=== PATIENT | male | born 1940 | race Caucasian/White ===

== ENCOUNTER → 2017-03-06 | Outpatient (CLI) | payer MEDICARE, BC ==
--- NOTE | 2017-03-07 08:42 | XR ---
EXAMINATION TYPE: PA chest and left rib series DATE OF EXAM: 03/06/2017 10:19 AM COMPARISON: Chest 07/09/2015 HISTORY: 76-year-old male left rib pain, trauma FINDINGS: Frontal view of the chest shows heart at the upper limits of normal in size. There is some patchy opa city at the left base without significant pleural effusion. No pneumothorax. Right lung and pleural s pace are clear. Mild elongation of the thoracic aorta. No displaced left rib fracture seen. IMPRESSION: 1. Patchy atelectasis, contusion, or infiltrate at the left base. 2. No displaced left rib fracture.
== END | disposition home or self-care (01) ==
LOC: RADXRYALE 10:03
PROVIDERS: ATTEND Family Medicine
DX: S29.9XXA Unspecified injury of thorax, initial encounter (principal); R91.8 Other nonspecific abnormal finding of lung field; X58.XXXA Exposure to other specified factors, initial encounter

== ENCOUNTER → 2018-05-15 | Outpatient (CLI) | payer BC, MEDICARE ==
--- NOTE | 2018-05-15 15:53 | US ---
EXAMINATION TYPE: US retroperitoneal limited DATE OF EXAM: 05/15/2018 COMPARISON: NONE CLINICAL HISTORY: R94.4 abnormal renal studies. Retroperitoneal order for renal and aorta, states abn renal function test, patient states no symptoms Right Kidney: 10.4 x 5.0 x 5.0cm Left Kidney: 10.7 x 4.4 x 5.9cm Right Kidney: 1.0cm mid pole shadowing stone seen Left Kidney: limited views due to bowel gas and rib shadowing Aorta Prx: 2.5 x 2.9cm Aorta Mid: 3.9 x 8.7cm Aorta Dist: 9.8 x 8.6cm Aorta Bifurcation: Rt = 2.3cm Lt = 4.5cm dilation of aorta seen from proximal and extending down through iliac arteries, dependant debris se en posterior wall mid/dist level Bladder is somewhat poorly distended and thus suboptimally evaluated. IMPRESSION: Large abdominal aortic aneurysm measuring up to 9.8 cm in size with extension into left common iliac artery. Aneurysm of this size is high risk for rupture. Fairly urgent Endovascular and/o r surgical referral is advised. A [place] critical message alert has been initiated for Oksana Taylor DO via the [employer] Critical Results System on 05/15/2018 3:48 PM. This message alert has been sent to Oksana Taylor DO via the preferences provided by the clinician for the receipt of Radiology Critical Findings. Message ID [id number]. Case discussed with covering nurse practitioner in office also at time of dictation.
== END | disposition home or self-care (01) ==
LOC: RADUSWWP 14:16
PROVIDERS: ATTEND Family Medicine
DX: I71.4 Abdominal aortic aneurysm, without rupture (principal); I72.3 Aneurysm of iliac artery
CPT/HCPCS: 76775

== ENCOUNTER → 2018-05-15 | Outpatient (CLI) | payer MEDICARE ==
--- NOTE | 2018-05-15 20:01 | CT ---
EXAMINATION TYPE: CT angio abd aorta w/Runoff DATE OF EXAM: 05/15/2018 COMPARISON: None HISTORY: AAA CT DLP: 1874.7 mGycm, Automated Exposure Control for Dose Reduction was Utilized. CONTRAST: CT scan of the abdomen and pelvis is performed with oral and with IV Contrast, patient injected with 80 mL of Isovue 370. FINDINGS: Multiple axial sections were obtained from the diaphragm to the bottom of the feet with intravenous c ontrast. There are 3-D post processed images. There is a fusiform mid and lower abdominal aortic aneurysm that measures 17 cm in length this extend s from the renal arteries to the aortic bifurcation. Aneurysm measures up to 9 cm in diameter. I see no contrast extravasation. There is arterial flow in both renal arteries and the superior mesenteric artery and the celiac artery. I see no evidence of aneurysm of these vessels. Liver spleen pancreas gallbladder appear normal. Bile ducts are not dilated. There is 7 mm calculus i n the lateral right and left kidney. There are other smaller calculi. There is no hydronephrosis. The re is no retroperitoneal adenopathy. There is no ascites. There is aneurysm of the common iliac arteries that measure 2.7 cm. There is bilateral arterial flow in the internal and external iliac arteries. There is arterial flow in both femoral arteries. There i s atherosclerotic calcification in the femoral arteries. There is arterial flow in both popliteal art eries. Evaluation of the tibial arteries is limited due to insufficient contrast. The bladder distend s smoothly. I see no pelvic mass. IMPRESSION: There is some atherosclerotic vascular disease. Angiographic evaluation of the tibial arteries is eladio y limited due to insufficient contrast. The the contrast is pooling in the very large abdominal aorti c aneurysm. There are large aneurysms of the abdominal aorta and the iliac arteries as above. There is 1 cm throm bus on the posterior wall of the abdominal aortic aneurysm. No evidence of dissection. The lower thor acic aorta and upper abdominal aorta have fairly normal diameter. If there is indication to evaluate the tibial arteries then delayed CT images will be needed or ultrasound would be helpful as a screeni ng exam for stenosis. Nonobstructing renal calculi.
== END | disposition home or self-care (01) ==
LOC: RADCTMAIN 17:28
PROVIDERS: ATTEND Surgery
DX: I71.4 Abdominal aortic aneurysm, without rupture (principal); I70.8 Atherosclerosis of other arteries; I72.3 Aneurysm of iliac artery; I74.09 Other arterial embolism and thrombosis of abdominal aorta; N20.0 Calculus of kidney
CPT/HCPCS: 82565; 84520; 75635; 36415; Q9967

== ENCOUNTER → 2020-03-25 | Outpatient (CLI) | payer MEDICARE ==
--- NOTE | 2020-03-25 10:08 | CT ---
EXAMINATION TYPE: CT urogram wo/w con DATE OF EXAM: 03/25/2020 COMPARISON: None HISTORY: hematuria CT DLP: 3514 mGycm CONTRAST: Performed and with IV Contrast, patient injected with 80 mL of Isovue 300. CT Urography was performed with unenhanced followed by enhanced images of the kidneys, ureters and ur inary bladder. Delayed images were obtained. 3d reconstruction was performed at a separate work sta tion. FINDINGS: KIDNEYS/BLADDER: 4.3 mm calculus mid pole left kidney is nonobstructing. Vascular calcifications righ t kidney. 5 subcentimeter cystic lesions right kidney likely reflective of simple cysts. 10 hypoatten uating lesions left kidney measuring up to 1.6 cm midpole left kidney are compatible with simple cyst s. I do not see evidence for solid lesion. Urinary bladder demonstrates smooth configuration without filling defect or wall thickening. LUNG BASES-: No visible nodule. No infiltrate. LIVER/GB: No calcified gallstones. No space occupying hepatic lesion. Biliary tree is of normal ca liber. PANCREAS: No inflammation. No distinct mass. SPLEEN: No splenic enlargement. No lesion seen. ADRENALS: No nodule. No thickening. BOWEL: Normal appendix. Normal bowel caliber. No inflammation. GENITAL ORGANS: No gross abnormality. LYMPH NODES: No greater than 1cm abdominal or pelvic lymph nodes are appreciated. AORTA: Aortic stent graft identified with cahto aneurysm 7.2 cm AP dimension OSSEOUS STRUCTURES: No significant abnormality is seen. OTHER: No significant additional abnormality is seen. IMPRESSION: 1. Renal cystic changes without evidence for renal mass. 2. Nonobstructing left-sided nephrolithiasis. 3. Renal vascular calcifications.
== END | disposition home or self-care (01) ==
LOC: RADCTMAIN 06:38
PROVIDERS: ATTEND Urology
DX: N20.0 Calculus of kidney (principal); N28.1 Cyst of kidney, acquired
CPT/HCPCS: 82565; 84520; 74178; 36415; 74400; Q9967

== ENCOUNTER → 2020-06-15 | Outpatient (CLI) | payer MEDICARE ==
--- NOTE | 2020-06-17 07:54 | CT ---
EXAM: CT ANGIOGRAPHY OF THE ABDOMEN, PELVIS DATE OF SERVICE: 06/15/2020 INDICATION: Abdominal aortic aneurysm COMPARISON: CTA abdominal aorta with runoff 05/15/2018] TECHNIQUE: Multiple thin slice sub-millimeter images were obtained through the abdomen and pelvis aft er administration of contrast. Patient was given Isovue 370, 160 cc intravenously. 3-D reconstructe d images and maximum intensity projection images were generated and utilized on a separate workstatio n. FINDINGS: CTA Abdomen and pelvis: There is an aortobiiliac stent graft, with stent seen in the right external i liac artery as well. The stent graft originates just below the level of the superior mesenteric arter y. The abdominal aortic aneurysm sac measures up to 7.4 x 8.0 cm AP and transverse, which is decrease d from 05/15/2018 comparison prior to endograft placement within the aneurysm sac measured up to 8.7 x 9.0 cm. The bilateral common iliac arteries measure up to 2.9 cm each, not significantly changed fro m 2018 comparison. 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 The right iliac artery demonstrates embolization coils and appears occluded with collater al vessels. There is no evidence of intramural hematoma on precontrast imaging. The origins of the villarreal perior mesenteric artery, renal arteries, and celiac axis are patent. No evidence of endoleak or abno rmal contrast extravasation on delayed imaging. 3-dimensional images are consistent with the above findings. VISCERA: Lung bases demonstrate bibasilar atelectasis. The liver, spleen, adrenal glands, pancreas, a nd gallbladder appear unremarkable. Bilateral renal cysts and too small to characterize hypodense les ions. Nonobstructing 4 and 3 mm calculi of the left kidney. No evidence of bowel obstruction. No pneu moperitoneum, free fluid, or lymphadenopathy. Urinary bladder is normal. Enlarged prostate. Degenerative changes of the spine. IMPRESSIONS: 1. Aortobiiliac stent graft, with stent extending to the right external iliac artery. There is no ev idence of intramural hematoma or endoleak. The maximum abdominal aortic aneurysm diameter is decrease d in size measuring 7.4 cm AP, previously measuring 8.7 cm on 05/15/2018 comparison prior to stent gra ft placement. Aneurysms of the bilateral common iliac arteries and left internal iliac artery are unc hanged versus 2018 CTA comparison. 2. The celiac artery, superior mesenteric artery, and bilateral renal arteries are patent.
== END | disposition home or self-care (01) ==
LOC: RADCTMAIN 15:13
PROVIDERS: ATTEND Internal Medicine Cardiovascular Disease
DX: I71.4 Abdominal aortic aneurysm, without rupture (principal); I72.3 Aneurysm of iliac artery; Z95.828 Presence of other vascular implants and grafts
CPT/HCPCS: 82565; 84520; 36415; 74174; Q9967

== ENCOUNTER 2023-02-10 09:57 | Emergency (ER) | payer MEDICARE ==
[2023-02-10 10:04] VITALS: RESP 18
[2023-02-10] MEDS ORDERED: SODIUM CHLORIDE 0.9% 500 ML 500 ML IV STA (10:20)
--- NOTE | 2023-02-10 10:22 | ED ---
General Adult HPI - General Chief complaint: Recheck/Abnormal Lab/Rx Stated complaint: Leg pain Time Seen by Provider: 02/10/23 10:11 Source: patient, RN notes reviewed Mode of arrival: wheelchair Limitations: no limitations - History of Present Illness Initial comments: 82 year-old male with a extensive past medical history presents to the emergency department with a chief complaint of generalized weakness and fatigue. He reports that he has had this problem for "months." However the last month he is complaining of worsening fatigue in the last 2 days he has been struggling to walk and get to the bathroom he denies any recent falls, trauma or injury. He has not taken anything for his symptoms. He denies any fevers, chills, dizziness, lightheadedness, chest pain, shortness of breath, abdominal pain, nausea, vomiting. He reports his stools been normal for him. He denies any recent known sick contacts. He reports that he has got injections in his back and his last was approximately a month ago however he feels like his symptoms have gotten worse since then. - Related Data Home Medications Medication Instructions Recorded Confirmed Dutasteride [Avodart] 0.5 mg PO HS 05/20/15 02/10/23 Apixaban [Eliquis] 2.5 mg PO BID 02/10/23 02/10/23 Donepezil [Aricept] 10 mg PO HS 02/10/23 02/10/23 Doxycycline Hyclate 100 mg PO BID 02/10/23 02/10/23 Gabapentin [Neurontin] 300 mg PO HS 02/10/23 02/10/23 Levothyroxine Sodium [Synthroid] 112 mcg PO DAILY 02/10/23 02/10/23 Niacinamide 500 mg PO BID 02/10/23 02/10/23 Tamsulosin HCl [Flomax] 0.4 mg PO HS 02/10/23 02/10/23 Telmisartan [Micardis] 40 mg PO HS 02/10/23 02/10/23 atenoloL [Tenormin] 50 mg PO HS 02/10/23 02/10/23 Allergies Allergy/AdvReac Type Severity Reaction Status Date / Time No Known Allergies Allergy Verified 02/10/23 11:59 Review of Systems ROS Statement: Those systems with pertinent positive or pertinent negative responses have been documented in the HPI. ROS Other: All systems not noted in ROS Statement are negative. 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 History of Any Multi-Drug Resistant Organisms: None Reported Past Surgical History: Adenoidectomy, Orthopedic Surgery, Tonsillectomy Additional Past Surgical History / Comment(s): SKIN CA REMOVED TIP OF FINGER LT MIDDLE FINGER, EGD/COLONOSCOPY Past Anesthesia/Blood Transfusion Reactions: No Reported Reaction Past Psychological History: No Psychological Hx Reported Smoking Status: Former smoker Past Alcohol Use History: Occasional Past Drug Use History: None Reported - Past Family History Father Family Medical History: Coronary Artery Disease (CAD), Myocardial Infarction (MA) Mother Additional Family Medical History / Comment(s): AT AGE 93 General Exam Limitations: no limitations General appearance: alert, in no apparent distress Head exam: Present: atraumatic, normocephalic, normal inspection Eye exam: Present: normal appearance, PERRL, EOMI. Absent: scleral icterus, conjunctival injection, periorbital swelling ENT exam: Present: normal exam, mucous membranes moist Neck exam: Present: normal inspection. Absent: tenderness, meningismus, lymphadenopathy Respiratory exam: Present: normal lung sounds bilaterally. Absent: respiratory distress, wheezes, rales, rhonchi, stridor Cardiovascular Exam: Present: regular rate, irregular rhythm, normal heart sounds. Absent: systolic murmur, diastolic murmur, rubs, gallop, clicks GI/Abdominal exam: Present: soft, normal bowel sounds. Absent: distended, tenderness, guarding, rebound, rigid Extremities exam: Present: normal inspection, full ROM, normal capillary refill. Absent: tenderness, pedal edema, joint swelling, calf tenderness Back exam: Present: normal inspection Neurological exam: Present: alert, oriented X3, CN II-XII intact Psychiatric exam: Present: normal affect, normal mood Skin exam: Present: warm, dry, intact, normal color. Absent: rash Course Vital Signs 02/10/23 02/10/23 02/10/23 10:00 11:17 12:18 Temperature 98.0 F Pulse Rate 85 105 H 82 Respiratory 18 18 18 Rate Blood Pressure 154/96 153/117 159/116 O2 Sat by Pulse 96 97 98 Oximetry 02/10/23 14:09 Temperature 97.4 F L Pulse Rate 86 Respiratory 18 Rate Blood Pressure 145/106 O2 Sat by Pulse 94 L Oximetry - Reevaluation(s) Reevaluation #1: 02/10/23 14:06 Pt able to ambulate around the department without difficulty. Patient is requesting to be discharge at this time. EKG Findings - EKG Comments: EKG Findings:: I interpreted the following: EKG performed at 11:06. Rate 94 bpm and shows atrial fibrillation. ME *, QRS duration 97, QT/QTc 359/410 Medical Decision Making - Medical Decision Making Was pt. sent in by a medical professional or institution (Dr. PA, [employer], urgent care, hospital, or fdc...) When possible be specific @ -[No] Did you speak to anyone other than the patient for history (EMS, parent, family, police, friend...)? What history was obtained from this source @ -[No] Did you review nursing and triage notes (agree or disagree)? Why? @ -[I reviewed and agree with nursing and triage notes] Were old charts reviewed (outside hosp., previous admission, EMS record, old EKG, old radiological studies, urgent care reports/EKG's, fdc records)? Report findings @ -[No old charts were reviewed] Differential Diagnosis (chest pain, altered mental status, abdominal pain women, abdominal pain men, vaginal bleeding, weakness, fever, dyspnea, syncope, headache, dizziness, GI bleed, back pain, seizure, CVA, palpatations, mental health, musculoskeletal)? @ -[not applicable] EKG interpreted by me (3pts min.). @ -[As above] X-rays interpreted by me (1pt min.). @ -Negative for any pleural consolidation or evidence of cardiomegaly CT interpreted by me (1pt min.). @ -[None done] U/S interpreted by me (1pt. min.). @ -[None done] What testing was considered but not performed or refused? (CT, X-rays, U/S, labs)? Why? @ -[None] What meds were considered but not given or refused? Why? @ -[None] Did you discuss the management of the patient with other professionals (professionals i.e. , PA, [employer], lab, RT, psych nurse, medical social consultant, private duty nurse, teacher, special forces warrant officer, case planner)? Give summary @ -[No] Was smoking cessation discussed for >3mins.? @ -[No] Was critical care preformed (if so, how long)? @ -[No] Were there social determinants of health that impacted care today? How? (Homelessness, low income, unemployed, alcoholism, drug addiction, transportation, low edu. Level, literacy, decrease access to med. care, [facility], rehab)? @ -[No] Was there de-escalation of care discussed even if they declined (Discuss DNR or withdrawal of care, Hospice)? DNR status @ -[No] What co-morbidities impacted this encounter? (DM, HTN, Smoking, COPD, CAD, Cancer, CVA, ARF, Chemo, Hep., AIDS, mental health diagnosis, sleep apnea, morbid obesity)? @ -[None] Was patient admitted / discharged? Hospital course, mention meds given and route, prescriptions, significant lab abnormalities, going to OR and other pertinent info. @ -Discharged. This is an 82-year-old male who presents the emergency department with generalized weakness. Patient had a thorough history and physical exam performed while in the ED. Physical exam is essentially unremarkable patient remains to be in atrial fibrillation, lung sounds clear to auscultation bilaterally abdomen soft and nontender. Patient able to ambulate around the department with a steady gait. Patient had lab work and imaging performed on the ED which was essentially unremarkable. I discussed the results in detail with the patient verbalized understanding and all questions were addressed. Patient was requesting to be discharged home at this time. Return precautions were discussed at length. He was encouraged to follow up with his primary care physician in 1-2 days. The patient was discharged home in stable condition. Case discussed with Dr. Negron Marcial who agrees with plan of care. Undiagnosed new problem with uncertain prognosis? @ -[No] Drug Therapy requiring intensive monitoring for toxicity (Heparin, Nitro, Insulin, Cardizem)? @ -[No] Were any procedures done? @ -[No] Diagnosis/symptom? @ -generalized weakness Acute, or Chronic, or Acute on Chronic? @ -acute Uncomplicated (without systemic symptoms) or Complicated (systemic symptoms)? @ -uncomplicated Side effects of treatment? @ -[No] Exacerbation, Progression, or Severe Exacerbation? @ -[No] Poses a threat to life or bodily function? How? (Chest pain, USA, MA, pneumonia, PE, COPD, DKA, ARF, appy, cholecystitis, CVA, Diverticulitis, Homicidal, Suicidal, threat to staff... and all critical care pts) @ -low likelihood - Lab Data Result diagrams: 02/10/23 11:30 02/10/23 11:30 Lab Results 02/10/23 02/10/23 02/10/23 Range/Units 11:30 11:30 11:30 WBC 6.7 (3.8-10.6) k/uL RBC 4.23 L (4.30-5.90) m/uL Hgb 13.7 (13.0-17.5) gm/dL Hct 40.7 (39.0-53.0) % MCV 96.1 (80.0-100.0) fL MCH 32.4 (25.0-35.0) pg MCHC 33.7 (31.0-37.0) g/dL RDW 14.0 (11.5-15.5) % Plt Count 117 L (150-450) k/uL MPV 8.0 Neutrophils % 72 % Lymphocytes % 16 % Monocytes % 6 % Eosinophils % 3 % Basophils % 0 % Neutrophils # 4.8 (1.3-7.7) k/uL Lymphocytes # 1.1 (1.0-4.8) k/uL Monocytes # 0.4 (0-1.0) k/uL Eosinophils # 0.2 (0-0.7) k/uL Basophils # 0.0 (0-0.2) k/uL PT 11.2 (9.0-12.0) sec INR 1.1 (<1.2) APTT 22.8 (22.0-30.0) sec Sodium 142 (137-145) mmol/L Potassium 4.1 (3.5-5.1) mmol/L Chloride 109 H (98-107) mmol/L Carbon Dioxide 27 (22-30) mmol/L Anion Gap 6 mmol/L BUN 22 H (9-20) mg/dL Creatinine 1.44 H (0.66-1.25) mg/dL Est GFR (CKD-EPI)AfAm 52 (>60 ml/min/1.73 sqM) Est GFR (CKD-EPI)NonAf 45 (>60 ml/min/1.73 sqM) Glucose 94 (74-99) mg/dL Plasma Lactic Acid Grant (0.7-2.0) mmol/L Calcium 9.3 (8.4-10.2) mg/dL Magnesium 2.0 (1.6-2.3) mg/dL Total Bilirubin 0.9 (0.2-1.3) mg/dL AST 34 (17-59) U/L ALT 30 (4-49) U/L Alkaline Phosphatase 47 (38-126) U/L Troponin I (0.000-0.034) ng/mL NT-Pro-B Natriuret Pep pg/mL Total Protein 6.9 (6.3-8.2) g/dL Albumin 4.1 (3.5-5.0) g/dL Urine Color Urine Appearance (Clear) Urine pH (5.0-8.0) Ur Specific [place] (1.001-1.035) Urine Protein (Negative) Urine Glucose (UA) (Negative) Urine Ketones (Negative) Urine Blood (Negative) Urine Nitrite (Negative) Urine Bilirubin (Negative) Urine Urobilinogen (<2.0) mg/dL Ur Leukocyte Esterase (Negative) 02/10/23 02/10/23 02/10/23 Range/Units 11:30 11:30 11:30 WBC (3.8-10.6) k/uL RBC (4.30-5.90) m/uL Hgb (13.0-17.5) gm/dL Hct (39.0-53.0) % MCV (80.0-100.0) fL MCH (25.0-35.0) pg MCHC (31.0-37.0) g/dL RDW (11.5-15.5) % Plt Count (150-450) k/uL MPV Neutrophils % % Lymphocytes % % Monocytes % % Eosinophils % % Basophils % % Neutrophils # (1.3-7.7) k/uL Lymphocytes # (1.0-4.8) k/uL Monocytes # (0-1.0) k/uL Eosinophils # (0-0.7) k/uL Basophils # (0-0.2) k/uL PT (9.0-12.0) sec INR (<1.2) APTT (22.0-30.0) sec Sodium (137-145) mmol/L Potassium (3.5-5.1) mmol/L Chloride (98-107) mmol/L Carbon Dioxide (22-30) mmol/L Anion Gap mmol/L BUN (9-20) mg/dL Creatinine (0.66-1.25) mg/dL Est GFR (CKD-EPI)AfAm (>60 ml/min/1.73 sqM) Est GFR (CKD-EPI)NonAf (>60 ml/min/1.73 sqM) Glucose (74-99) mg/dL Plasma Lactic Acid Grant 1.2 (0.7-2.0) mmol/L Calcium (8.4-10.2) mg/dL Magnesium (1.6-2.3) mg/dL Total Bilirubin (0.2-1.3) mg/dL AST (17-59) U/L ALT (4-49) U/L Alkaline Phosphatase (38-126) U/L Troponin I <0.012 (0.000-0.034) ng/mL NT-Pro-B Natriuret Pep 2930 pg/mL Total Protein (6.3-8.2) g/dL Albumin (3.5-5.0) g/dL Urine Color Urine Appearance (Clear) Urine pH (5.0-8.0) Ur Specific [place] (1.001-1.035) Urine Protein (Negative) Urine Glucose (UA) (Negative) Urine Ketones (Negative) Urine Blood (Negative) Urine Nitrite (Negative) Urine Bilirubin (Negative) Urine Urobilinogen (<2.0) mg/dL Ur Leukocyte Esterase (Negative) 02/10/23 Range/Units 12:46 WBC (3.8-10.6) k/uL RBC (4.30-5.90) m/uL Hgb (13.0-17.5) gm/dL Hct (39.0-53.0) % MCV (80.0-100.0) fL MCH (25.0-35.0) pg MCHC (31.0-37.0) g/dL RDW (11.5-15.5) % Plt Count (150-450) k/uL MPV Neutrophils % % Lymphocytes % % Monocytes % % Eosinophils % % Basophils % % Neutrophils # (1.3-7.7) k/uL Lymphocytes # (1.0-4.8) k/uL Monocytes # (0-1.0) k/uL Eosinophils # (0-0.7) k/uL Basophils # (0-0.2) k/uL PT (9.0-12.0) sec INR (<1.2) APTT (22.0-30.0) sec Sodium (137-145) mmol/L Potassium (3.5-5.1) mmol/L Chloride (98-107) mmol/L Carbon Dioxide (22-30) mmol/L Anion Gap mmol/L BUN (9-20) mg/dL Creatinine (0.66-1.25) mg/dL Est GFR (CKD-EPI)AfAm (>60 ml/min/1.73 sqM) Est GFR (CKD-EPI)NonAf (>60 ml/min/1.73 sqM) Glucose (74-99) mg/dL Plasma Lactic Acid Grant (0.7-2.0) mmol/L Calcium (8.4-10.2) mg/dL Magnesium (1.6-2.3) mg/dL Total Bilirubin (0.2-1.3) mg/dL AST (17-59) U/L ALT (4-49) U/L Alkaline Phosphatase (38-126) U/L Troponin I (0.000-0.034) ng/mL NT-Pro-B Natriuret Pep pg/mL Total Protein (6.3-8.2) g/dL Albumin (3.5-5.0) g/dL Urine Color Yellow Urine Appearance Clear (Clear) Urine pH 6.5 (5.0-8.0) Ur Specific [place] 1.018 (1.001-1.035) Urine Protein Trace H (Negative) Urine Glucose (UA) Negative (Negative) Urine Ketones Negative (Negative) Urine Blood Negative (Negative) Urine Nitrite Negative (Negative) Urine Bilirubin Negative (Negative) Urine Urobilinogen <2.0 (<2.0) mg/dL Ur Leukocyte Esterase Negative (Negative) Disposition Clinical Impression: Fatigue, Generalized weakness Disposition: HOME SELF-CARE Condition: Stable Instructions (If sedation given, give patient instructions): Fatigue (ED) Additional Instructions: Please return to the nearest emergency department symptoms worsen or persist Is patient prescribed a controlled substance at d/c from ED?: No Referrals: Oksana Taylor DO [Primary Care Provider] - 1-2 days Time of Disposition: 14:06
--- NOTE | 2023-02-10 10:47 | XR ---
EXAMINATION TYPE: XR chest 2V DATE OF EXAM: 02/10/2023 10:38 AM COMPARISON: Chest radiographs from 03/06/2017. TECHNIQUE: XR chest 2V Frontal and lateral views of the chest. CLINICAL INDICATION:Male, 82 years old with history of Weakness; FINDINGS: Lungs/Pleura: There is no evidence of pleural effusion, focal consolidation, or pneumothorax. Pulmonary vascularity: Unremarkable. Heart/mediastinum: Cardiomediastinal silhouette is unremarkable. Musculoskeletal: No acute osseous pathology. IMPRESSION: No acute cardiopulmonary disease/process.
[2023-02-10 11:48] LABS: Basophils % (A) 0 %; Eosinophils # (A) 0.2 k/uL (0-0.7); Eosinophils % (A) 3 %; HCT 40.7 % (39.0-53.0); HGB 13.7 gm/dL (13.0-17.5); Lymphocytes # (A) 1.1 k/uL (1.0-4.8); Lymphocytes % (A) 16 %; MCH 32.4 pg (25.0-35.0); MCHC 33.7 g/dL (31.0-37.0); MCV 96.1 fL (80.0-100.0); Monocytes # (A) 0.4 k/uL (0-1.0); Monocytes % (A) 6 %; Neutrophils # (A) 4.8 k/uL (1.3-7.7); Neutrophils % (A) 72 %; Platelet Count 117 k/uL (150-450); RBC 4.23 m/uL (4.30-5.90); WBC 6.7 k/uL (3.8-10.6)
[2023-02-10 11:54] LABS: INR 1.1 (<1.2); Partial Thromboplastin Time 22.8 sec (22.0-30.0); Prothrombin Time 11.2 sec (9.0-12.0)
[2023-02-10 12:08] LABS: Albumin 4.1 g/dL (3.5-5.0); Calcium 9.3 mg/dL (8.4-10.2); Potassium 4.1 mmol/L (3.5-5.1); Total Bilirubin 0.9 mg/dL (0.2-1.3); Total Protein 6.9 g/dL (6.3-8.2)
[2023-02-10 13:17] LABS: Appearance,Urine Clear (Clear); Bilirubin,Urine Negative (Negative); Blood,Urine Negative (Negative); Color,Urine Yellow; Glucose,Urine (UA) Negative (Negative); Ketones,Urine Negative (Negative); Leukocyte Esterase,Urine Negative (Negative); Nitrite,Urine Negative (Negative); PH, Urine 6.5 (5.0-8.0); Protein,Urine Trace (Negative); Specific Gravity,Urine 1.018 (1.001-1.035); Urobilinogen,Urine <2.0 mg/dL (<2.0)
[2023-02-10 14:17] VITALS: BP 145/106; PULSE 86; TEMP 97.4
== END 2023-02-10 14:20 | disposition home or self-care (01) ==
LOC: EC 09:57
DX: R53.83 Other fatigue (principal); I10 Essential (primary) hypertension; I48.91 Unspecified atrial fibrillation; E78.5 Hyperlipidemia, unspecified; E07.9 Disorder of thyroid, unspecified; Z79.890 Hormone replacement therapy; Z79.899 Other long term (current) drug therapy; Z79.01 Long term (current) use of anticoagulants; Z87.891 Personal history of nicotine dependence
CPT/HCPCS: 36415; 71046; 80053; 81003; 83605; 83735; 83880; 84484; 85025; 85610; 85730; 93005; 96360; 99284

== ENCOUNTER → 2023-06-16 | Outpatient (CLI) | payer MEDICARE ==
--- NOTE | 2023-06-20 08:23 | CT ---
EXAMINATION TYPE: CT brain wo con DATE OF EXAM: 06/16/2023 COMPARISON: None HISTORY: dementia CT DLP: 1064.[address] of the brain was performed. The ventricles, basal cisterns and sulci overlying the cerebral convexities demonstrate mild enlargem ent. There is no evidence for intracranial hemorrhage or sulcal effacement. There is decreased attenuation about the periventricular white matter and deep white matter of both c erebral hemispheres, compatible with chronic small vessel ischemia. Differential diagnosis does inclu de demyelination. No mass effects are seen.No midline shift. Osseous calvarium is intact. If symptoms persist consider MRI. IMPRESSION: 1. Age related atrophic and chronic small vessel ischemic change without acute intracranial process s een at this time.
== END | disposition home or self-care (01) ==
LOC: RADCTMAIN 13:28
PROVIDERS: ATTEND Family Medicine
DX: F03.90 Unspecified dementia, unspecified severity, without behavioral disturbance, psychotic disturbance, mood disturbance, and anxiety (principal); I67.82 Cerebral ischemia; G31.89 Other specified degenerative diseases of nervous system
CPT/HCPCS: 70450

== ENCOUNTER → 2023-06-16 | Outpatient (CLI) | payer MEDICARE ==
[2023-06-16 14:09] LABS: African American GFR (CKD) 47 (>60 ml/min/1.73 sqM); Blood Urea Nitrogen 20 mg/dL (9-20); Non-African American GFR(CKD) 41 (>60 ml/min/1.73 sqM)
--- NOTE | 2023-06-17 15:45 | CT ---
EXAMINATION TYPE: CT angio abdomen pelvis CT DLP: 1088.5 mGycm, Automated exposure control for dose reduction was used. DATE OF EXAM: 06/16/2023 3:33 PM COMPARISON: CTA abdomen pelvis 06/15/2020. 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 Patient was given Isovue 370, 80 cc intravenously. 3-D re constructed images and maximum intensity projection images were obtained of the aorta. FINDINGS: FINDINGS: CTA Abdomen and pelvis: There is an aortobiiliac stent graft with stent extending into the right exte rnal iliac artery again. The stent graft originates just below the level of the superior mesenteric a rtery. The abdominal aortic aneurysm sac has increased in size measuring 9.6 x 8.3, previously 7.4 x 8.0 cm. There is contrast extending into the surrounding aneurysm sac best appreciated on the delayed imaging. The site of the aortic and biiliac junction components. The left common carotid artery skye uring up to 3.0 cm is stable from prior exam. The right common artery measures 2.2 cm which is decrea sed from prior examination are previously 2.9 cm. The right internal iliac artery demonstrates emboli zation coils and appears occluded with collateral vessels again demonstrated. There is no evidence of intramural hematoma on precontrast imaging. The origins of the superior mesenteric artery, renal art eries, and celiac axis are patent. Mild stenosis of the origin of the celiac axis. Mild stenosis of t he origin of the bilateral renal arteries. The MARCE is patent. VISCERA: Lung bases demonstrate bibasilar atelectasis. The liver, spleen, adrenal glands, pancreas, a nd gallbladder appear unremarkable. Bilateral renal cysts and too small to characterize hypodense les ions redemonstrated. Nonobstructing left renal calculi. No evidence of bowel obstruction. No pneumope ritoneum, free fluid, or lymphadenopathy. Urinary bladder is normal. Enlarged prostate. Degenerative changes of the spine. Mild retrolisthesis of L5 on S1 without evidence of pars defects. Remote compre ssion deformity of the L1 vertebral body with sclerosis demonstrated. It is approximately 10% height loss and no retropulsion. Small fat filled umbilical hernia. Fat filled left inguinal hernia. IMPRESSIONS: Aortobiiliac stent graft with stent extending to the right external iliac artery. There is no evidenc e of intramural hematoma. The maximum abdominal aortic aneurysm diameter has increased in size measur ing up to 9.6 cm, previously 7.4 cm. There is contrast demonstrated on delayed imaging near the aorti c and biiliac stent graft junction. 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 Aneurysms of the bilate ral common iliac arteries and left internal iliac artery are redemonstrated.
== END | disposition home or self-care (01) ==
LOC: RADCTMAIN 13:31
PROVIDERS: ATTEND Surgery
DX: I71.43 Infrarenal abdominal aortic aneurysm, without rupture (principal); Z95.828 Presence of other vascular implants and grafts
CPT/HCPCS: 82565; 84520; 36415; 74174; Q9967

== ENCOUNTER → 2023-09-11 | Outpatient (CLI) | payer MEDICARE ==
[2023-09-11 10:44] LABS: African American GFR (CKD) 57 (>60 ml/min/1.73 sqM); Blood Urea Nitrogen 24 mg/dL (9-20); Non-African American GFR(CKD) 49 (>60 ml/min/1.73 sqM)
--- NOTE | 2023-09-11 11:40 | CT ---
EXAMINATION TYPE: CT lumbar spine wo con CT DLP: 964 mGycm, Automated exposure control for dose reduction was used. DATE OF EXAM: 09/11/2023 11:18 AM COMPARISON: CT lumbar spine 12/19/2022, CTA abdomen pelvis 06/16/2023. CLINICAL INDICATION:Male, 82 years old with history of S32.010A WEDGE COMPRESSION FRACTURE OF FIRST L UMBA; PHH, lumbar back pain TECHNIQUE: Multiple axial images were obtained from the midportion of T11 through the sacroiliac sameera nts. Soft tissue and bone windows in coronal and sagittal planes were obtained and reviewed. Contrast used: None. Oral contrast used: none. FINDINGS: Alignment: There are 5 lumbar type vertebral bodies within normal alignment. Bone: No evidence of acute fracture is identified. Similar compression deformity with sclerosis invo lving the L1 vertebral body with approximately 50% height loss centrally from CT 06/16/2023 but new fr om CT 12/19/2022. No paraspinal edema. No retropulsion. Multilevel anterior osteophytosis. Discs: T12-L1: No spinal canal or neural foraminal stenosis is identified. L1-L2: No spinal canal or neural foraminal stenosis is identified. L2-L3: Broad-based disc bulge with mild central canal stenosis. Bilateral facet arthropathy. Mild lef t neural foraminal stenosis. The right neural foramen is patent. L3-L4: Broad-based disc bulge without significant central canal stenosis. Bilateral facet arthropathy . Mild left and moderate right neural foraminal stenosis. L4-L5: Broad-based disc bulge with mild central canal stenosis. Bilateral facet arthropathy. Moderate bilateral neural foraminal stenosis. L5-S1: Right paracentral extrusion at L5-S1 which may abut the traversing right S1 nerve root. No sig nificant central canal stenosis. Bilateral facet arthropathy. Moderate to severe right neural foramin al stenosis. Moderate left neural foraminal stenosis. Other: Redemonstration of partial visualization of aortobiiliac endovascular stent graft with the angel maría elena aneurysm sac measuring grossly 9.4 cm in diameter which is similar to most recent exam but increa sed from prior CT lumbar. Left and right common and arteries remain aneurysmal again. IMPRESSION: 1. Similar remote compression fracture of the L1 vertebral body with approximately 50% height loss an d no retropulsion from CT 06/16/2023. This is new from CT 12/27/2022. 2. Similar multilevel degenerative disc disease and facet arthropathy as described above. 3. Redemonstration of partially visualized aortobiiliac stent graft with [place] enlarged aneurysm sac . The visualized portion seems similar to prior CT 06/16/2023 when there was concern for type III endo leak.
== END | disposition home or self-care (01) ==
LOC: RADCTMAIN 09:46
PROVIDERS: ATTEND Psychiatry & Neurology Neurology
DX: S32.010A Wedge compression fracture of first lumbar vertebra, initial encounter for closed fracture (principal); M51.36 Other intervertebral disc degeneration, lumbar region; M47.816 Spondylosis without myelopathy or radiculopathy, lumbar region; Z95.828 Presence of other vascular implants and grafts
CPT/HCPCS: 72131; 82565; 84520